=== PATIENT | female | born 1960 | race Caucasian/White ===

== ENCOUNTER 2018-01-11 21:14 | Emergency (ER) | payer BC ==
[~2018-01-11] VITALS: Ht 154.9 cm; Wt 61.2 kg
[2018-01-11] MEDS ORDERED: PROTONIX40 MG ORAL (21:27)
[2018-01-11] MEDS ORDERED: LET 3ml Soln TOPIC ONE ×2 (21:45→21:53)
[2018-01-11] MEDS ORDERED: Fluorescein Strips LEFT EYE ONE (21:45)
[2018-01-11] MEDS ORDERED: Fluorescein Strips ONE (21:52)
[2018-01-11] MEDS ORDERED: Tetracaine 0.5% Opth 4ml Soln ONE (21:59)
[2018-01-11] MEDS ORDERED: Tetracaine 0.5% Opth 4ml Soln LEFT EYE ONE (22:00)
[2018-01-11] MEDS ORDERED: POLYTRIM OP SOL10 ML OPHTHALM (22:09)
--- NOTE | 2018-01-11 22:10 | Emergency Room Report ---
History of Present Illness General Chief Complaint: Eye Problems Source: Patient Present Illness HPI This is a 57-year-old female with no significant past medical history. She presents with chief complaint of left eye pain. She was taken off his care from arrive on hour ago. She said several I she was instructed to get it out his are hurting. No fever chills but no nausea no vomiting. History of cornea abrasion in the past. Allergies: Coded Allergies: PENICILLINS (Verified Allergy, Unknown, 01/11/18) Patient History Past Medical History: see triage record, old chart reviewed Past Surgical History: none Pertinent Family History: none Social History: Denies: smoking Now: No Immunizations: other Reviewed Nursing Documentation: PMH: Agreed; PSxH: Agreed Nursing Documentation-PMH Past Medical History: No History, Except For Hx Gastrointestinal Problems: Yes - GERD Review of Systems Eye: Reports: eye pain; Denies: blurred vision ENT: Denies: ear pain, nose congestion, throat swelling Respiratory: Denies: cough, shortness of breath Cardiovascular: Denies: chest pain, palpitations Gastrointestinal: Denies: abdominal pain, diarrhea, nausea, vomiting Musculoskeletal: Denies: back pain, joint pain Skin: Denies: rash Neurological: Denies: headache, numbness Endocrine: Denies: increased thirst, increased urine Hematologic/Lymphatic: Denies: easy bruising All Other Systems: negative except mentioned in HPI Physical Exam Vital Signs Date Time Temp Pulse Resp B/P (MAP) Pulse Ox O2 Delivery O2 Flow Rate FiO2 01/11/18 21:24 98.3 81 16 164/86 97 Room Air 98.2 vitals normal Sp02 EP Interpretation: reviewed, normal General Appearance: well appearing, no apparent distress, alert Head: normocephalic, atraumatic Eyes: left eye other - atient point to pain to upper eyelid laterally. No floor seen uptake. No foreign seen with lid eversion.; bilateral eye PERRL, bilateral eye EOMI ENT: hearing grossly normal, normal pharynx Neck: full range of motion, supple, no meningismus Respiratory: chest non-tender, lungs clear, normal breath sounds Cardiovascular #1: regular rate, rhythm, no murmur Gastrointestinal: normal bowel sounds, non tender, no mass, no organomegaly, no bruit, non-distended Musculoskeletal: back normal, gait/station normal, normal range of motion Psychiatric: mood/affect normal Skin: warm/dry Medical Decision Making Diagnostic Impression: Primary Impression: Left eye pain Additional Impression: Abrasion of left eye Qualified Codes: S05.8X2A - Other injuries of left eye and orbit, initial encounter ER Course Patient present with left eye pain. Most likely a small abrasion. No evidence of corneal abrasion. We'll discharge home. Last Vital Signs Date Time Temp Pulse Resp B/P (MAP) Pulse Ox O2 Delivery O2 Flow Rate FiO2 01/11/18 21:24 98.3 81 16 164/86 97 Room Air 98.2 Status: improved Disposition: HOME, SELF-CARE Condition: Stable Scripts Polymyxin/Trimethoprim (Polytrim Eye Drops) 10 Ml Drops 2 DROP OPHTHALM QID, #1 EA Instill in affected eye for 7 days Prov: ZIA DON M.D. 01/11/18 Referrals: NOT CHOSEN IPA/,REFERRING (PCP) Additional Instructions: Follow-up your Dr. in 7 days. Return if worse. ZIA DON M.D. Jan 11, 2018 22:10
[2018-01-11 22:14] VITALS: BP 162/88
== END 2018-01-11 22:14 | disposition home or self-care (01) ==
LOC: EMR 21:35
DX: S05.8X2A Other injuries of left eye and orbit, initial encounter (principal); X58.XXXA Exposure to other specified factors, initial encounter; Y93.9 Activity, unspecified; Y92.9 Unspecified place or not applicable; K21.9 Gastro-esophageal reflux disease without esophagitis; Z88.0 Allergy status to penicillin
CPT/HCPCS: 99283